=== PATIENT | male | born 1975 | race Two or more races ===

== ENCOUNTER 2022-02-06 00:18 | Emergency (ER) | payer MEDICAID, OTHER ==
[~2022-02-06] VITALS: Ht 170.2 cm; Wt 65.8 kg
--- NOTE | 2022-02-06 00:25 | NUR ---
XRAY AT BEDSIDE
--- NOTE | 2022-02-06 00:25 | NUR ---
[id number] FRM HOME C/O CHEST PAIN NON RADIA. 11/14 PAIN. DENIES N/V. NITRO X2 .4 324 ASPIRIN GIVEN BY EMS. RR EVEN AND NON LABORED. CONNECTED TO POX AND HEART MONITOR
--- NOTE | 2022-02-06 00:31 | NUR ---
IV LAC18G , PATENT AND INTACT
--- NOTE | 2022-02-06 00:31 | NUR ---
BLOOD COLLECTED AND SENT TO LAB
[2022-02-06] MEDS ORDERED: ASPIRIN 325 MG TABLET ONE (00:43)
[2022-02-06] MEDS ORDERED: NITROGLYCERIN 0.4 MG/TAB BOTTLE ONE (00:43)
[2022-02-06] MEDS ORDERED: ASPIRIN 325 MG TABLET PO ONE (01:00)
[2022-02-06] MEDS ORDERED: NITROGLYCERIN 0.4 MG/TAB BOTTLE SL ONE (01:00)
[2022-02-06 01:01] LABS: BASOPHILS % (AUTO) 0.2 % (0.0-2.0); EOSINOPHILS % (AUTO) 1.9 % (0.0-6.0); HEMATOCRIT 44 % (39-51); HEMOGLOBIN 14.8 g/dL (13.5-17.5); LYMPHOCYTES # (AUTO) 1.1 K/uL (0.8-4.8); LYMPHOCYTES % (AUTO) 12.2 % (20.0-44.0); MEAN CORPUSCULAR HGB CONC 34 g/dl (31.0-36.0); MEAN CORPUSCULAR VOLUME 93 fL (80-96); MONOCYTES # (AUTO) 0.8 K/uL (0.1-1.30); MONOCYTES % (AUTO) 8.6 % (2.0-12.0); NEUTROPHILS # (AUTO) 6.7 K/uL (1.8-8.9); NEUTROPHILS % (AUTO) 77.1 % (43.0-81.0); PLATELET COUNT (AUTO) 245 K/uL (150-450); RED BLOOD CELL COUNT(AUTO) 4.69 MIL/uL (4.5-6.0); WHITE BLOOD COUNT (AUTO) 8.7 K/uL (4.3-11.0)
[2022-02-06 01:19] LABS: CALCIUM, SERUM 9.1 mg/dL (8.5-10.1); CARBON DIOXIDE 28 mmol/L (21-32); CHLORIDE 101 mmol/L (98-107); CREATININE 1.1 mg/dL (0.6-1.3); GLUCOSE 102 mg/dL (74-106); SODIUM SERUM 139 mmol/L (136-145); UREA NITROGEN, BLOOD 17 mg/dL (7-18)
[2022-02-06 01:33] VITALS: BP 113/70
[2022-02-06] MEDS ORDERED: LIDOCAINE VISCOUS 2% UD 15 ML UDC MM ONE (02:30)
[2022-02-06] MEDS ORDERED: MAG HYDROX/AL HYDROX/SIMETH 30 ML UDC PO ONE (02:30)
--- NOTE | 2022-02-06 03:14 | NUR ---
Patient discharged to home in stable condition. Written and verbal after care instructions given. Patient verbalizes understanding of instruction.
== END 2022-02-06 03:14 | disposition home or self-care (01) ==
LOC: ER 00:20
DX: R07.89 Other chest pain (principal); K21.9 Gastro-esophageal reflux disease without esophagitis; Z79.82 Long term (current) use of aspirin; Z79.899 Other long term (current) drug therapy; F17.200 Nicotine dependence, unspecified, uncomplicated
CPT/HCPCS: 36415; 71045-TC; 80048-TC; 83880; 84484-TC; 85025-TC